=== PATIENT | female | born 1965 | race Caucasian/White ===

== ENCOUNTER 2020-04-06 15:35 | Outpatient (REF) | payer BC, SELFPAY ==
--- NOTE | 2020-04-06 | US_ITS ---
EXAMINATION: US THYROID CLINICAL INFORMATION: Nontoxic multinodular goiter. COMPARISON: Ultrasound-guided thyroid biopsy 02/16/2017. Thyroid ultrasound 07/17/2014. TECHNIQUE: Linear transducer mcmullen-scale and color Doppler examination with attention to the region of the thyroid. FINDINGS: SIZE: Measurements of the thyroid lobes and nodules are given in sagittal, anteroposterior and transverse dimensions respectively. Right Thyroid Lobe: 5.0 x 1.3 x 1.5 cm, volume 5.1 mL. Previously 5.2 x 1.3 x 1.9 cm, volume 6.7 mL. Parenchyma: The gland echotexture is heterogeneous. Thyroid vascularity is normal. Left Thyroid Lobe: 6.0 x 1.1 x 1.5 cm, volume 5.2 mL. Previously 5.1 x 0.9 x 1.3 cm, volume 3.1 mL. Parenchyma: The gland echotexture is homogeneous. Thyroid vascularity is normal. Isthmus: 0.2 cm in maximum AP dimension. Previously 0.2 cm. RIGHT THYROID LOBE: There are 4 nodules seen. 1. Location: Medial/mid pole. Size: 0.9 x 0.7 x 0.7 cm. Previous: Not seen, new. Nodule characteristics: Heterogeneous, irregular margins, smoothly marginated with intranodular flow. 2. Location: Mid pole/low lateral. Size: 1.4 x 1.1 x 1.3 cm. Previous: 1.1 x 0.7 x 0.9 cm. Nodule characteristics: Heterogeneous, smoothly marginated with echogenic calcifications and intranodular flow. 3. Location: Lower pole/lateral. Size: 1.0 x 0.5 x 0.8 cm. Previous: Not seen, new. Nodule characteristics: Heterogeneous, smoothly marginated with intranodular flow. 4. Location: Lower pole. Size: 0.8 x 0.6 x 0.8 cm. Previous: Not seen, new. Nodule characteristics: Heterogeneous, smoothly marginated with intranodular flow. ISTHMUS: No nodules. LEFT THYROID LOBE: There are 2 nodules seen. 1. Location: Upper pole. Size: 0.5 x 0.3 x 0.4 cm. Previous: Not seen, new. Nodule characteristics: Heterogeneous, smoothly marginated with no intranodular flow, complex lesion. 2. Location: Lower pole. Size: 0.5 x 0.3 x 0.4 cm. Previous: 0.3 x 0.2 cm. Nodule characteristics: Heterogeneous, smoothly marginated with no intranodular flow, likely complex lesion. NODES: No lymphadenopathy is seen in the tissue surrounding the thyroid gland. IMPRESSION: Multiple new nodules in the right lobe since the previous ultrasound. Largest nodule documented has slightly increased in size from previous exam 2014. Patient had a recent ultrasound at [facility] and not available for comparison.
[2020-04-06 17:20] LABS: Alanine Aminotransferase 8 U/L (0-31); Albumin Level 4.5 g/dL (3.5-5.0); Alkaline Phosphatase 66 U/L (39-117); Anion Gap 11 (12-20); Aspartate Amino Transferase 14 U/L (5-31); Bilirubin Total 0.3 mg/dL (0.0-1.0); Blood Urea Nitrogen 15 mg/dL (9-16); Calcium 9.4 mg/dL (8.4-10.2); Carbon Dioxide 28 mmol/L (22-29); Chloride 106 mmol/L (96-108); Estimated Glomerular Filt Rate > 60; Glucose Random 99 mg/dL (60-115); Potassium 4.1 mmol/l (3.3-5.1); Sodium 141 mmol/L (135-145); Total Protein 6.9 g/dL (6.5-8.0)
[2020-04-06 17:35] LABS: Thyroid Stimulating Hormone 1.16 mIU/mL (0.32-4.0)
[2020-04-07 07:32] LABS: Triiodothyronine T3 Total 39 ng/dL (76-181)
[2020-04-09 03:48] LABS: Thyroxine Binding Globulin 19.9 mcg/mL (13.5-30.9)
[2020-04-11 01:02] LABS: FT4 by Equilib. Dialysis 1.3 ng/dL (0.9-2.2)
== END 2020-04-06 15:36 | disposition home or self-care (01) ==
LOC: HO.US 15:35
PROVIDERS: PCP Family Medicine; Visit Provider Internal Medicine Endocrinology, Diabetes & Metabolism
DX: E04.2 Nontoxic multinodular goiter (principal); R94.6 Abnormal results of thyroid function studies
CPT/HCPCS: 36415; 76536; 80053; 84439; 84442; 84443; 84480; 84481

== ENCOUNTER → 2020-06-02 14:58 | Outpatient (BNVA) | payer BC, SELFPAY | PROVIDERS: PCP Family Medicine; Referring Provider Family Medicine; Visit Provider Internal Medicine Endocrinology, Diabetes & Metabolism | DX: Z76.89 Persons encountering health services in other specified circumstances (principal) ==